=== PATIENT | female | born 1930 | race Caucasian/White ===

== ENCOUNTER 2016-04-15 20:38 | Inpatient (IN) | payer OTHER ==
[~2016-04-15] VITALS: Ht 149.9 cm; Wt 85.8 kg
[2016-04-16] VITALS (9 sets, daily range): BP systolic 118–150; RESP 16–28; TEMP 97.2–99.1; Ht 149.9 cm; Wt 85.8 kg
[2016-04-16] MEDS ORDERED: OSELTAMIVIR 75 MG CAP PO SCH (01:12)
[2016-04-16] MEDS ORDERED: CEFTRIAXONE 1 GM VIAL ONE (01:13)
[2016-04-16] MEDS ORDERED: SODIUM CHLORIDE 0.9% 100 ML IV ONE (01:14)
[2016-04-16] MEDS ORDERED: SOD CHLOR 0.9% 1000 ML IV SCH (01:15)
[2016-04-16] MEDS ORDERED: DUONEB INH ONE (01:53)
[2016-04-16] MEDS ORDERED: OSELTAMIVIR 75 MG CAP PO ONE (01:53)
[2016-04-16] MEDS ORDERED: TOBRAMYCIN IV ONE (03:00)
[2016-04-16] MEDS ORDERED: SODIUM CHLORIDE 0.9% IV ONE (03:00)
[2016-04-16] MEDS ORDERED: DEXTROSE 50% SYRINGE 50 ML IV PRN (03:50)
[2016-04-16] MEDS ORDERED: GLUCAGON 1 MG VIAL IM PRN (03:50)
[2016-04-16] MEDS ORDERED: ONDANSETRON 4 MG VIAL IV PUSH PRN (03:50)
[2016-04-16] MEDS: DUONEB INH SCH ×3 (04:17→11:14)
[2016-04-16] MEDS ORDERED: TRAMADOL 50 MG TAB PO PRN (06:30)
[2016-04-16] MEDS ORDERED: ACETAMINOPHEN 325 MG TAB PO PRN (06:30)
[2016-04-16] MEDS ORDERED: MISSING DOSE XX ONE ×2 (08:00→16:00)
[2016-04-16] MEDS: METHYLPRED SOD SUCC 40 MG VIAL IV SCH ×2 (08:56→20:35)
[2016-04-16] MEDS: OSELTAMIVIR 75 MG CAP PO SCH ×2 (08:57→20:34)
[2016-04-16] MEDS: CEFTRIAXONE 1 GM in SODIUM CHLORIDE 0.9% 50 ML IV SCH (08:57)
[2016-04-16] MEDS: ENOXAPARIN 30 MG/0.3 ML SYR SUBQ SCH ×2 (08:58→20:33)
[2016-04-16] MEDS ORDERED: FLUTICASONE 0.05% NA BTL NARE EACH SCH (09:00)
[2016-04-16] MEDS ORDERED: LISINOPRIL/HCTZ 10/12.5 TAB PO SCH (09:49)
[2016-04-16] MEDS: NEB-BUDESONIDE 0.5 MG INH SCH ×2 (11:14→18:05)
[2016-04-16] MEDS: FLUTICASONE 0.05% NA BTL NARE EACH SCH ×2 (11:44→14:42)
[2016-04-16] MEDS: ASPIRIN EC 81 MG TAB PO SCH (13:37)
[2016-04-16] MEDS ORDERED: DICYCLOMINE 20 MG TAB PO PRN (14:30)
[2016-04-16] MEDS ORDERED: KCL CR 10 MEQ CAP PO ONE (14:30)
[2016-04-16] MEDS ORDERED: Furosemide 20 MG/2 ML VIAL IV ONE (14:30)
[2016-04-16] MEDS: PANTOPRAZOLE 40 MG TAB PO SCH (15:15)
[2016-04-16] MEDS: METOPROLOL XL 25 MG TAB PO SCH (15:16)
[2016-04-16] MEDS: amLODIPine 5 MG TAB PO SCH (15:17)
[2016-04-16] MEDS: LEVOTHYROXINE 0.088 MG TAB PO SCH (15:17)
[2016-04-16] MEDS: DULoxetine 30 MG CAP PO SCH (15:17)
[2016-04-16] MEDS: NEB-XOPENEX 0.63 MG/3 ML INH SCH ×3 (15:42→22:32)
[2016-04-16] MEDS: NEB-ATROVENT INH SCH ×3 (15:42→22:32)
[2016-04-16] MEDS ORDERED: LORAZEPAM 0.5 MG TAB PO PRN (15:50)
[2016-04-16] MEDS: PREGABALIN 25 MG CAP PO SCH ×2 (17:04→20:34)
[2016-04-16] MEDS: BENZONATATE 100 MG CAP PO SCH ×2 (17:05→20:35)
[2016-04-16] MEDS ORDERED: ALPRAZOLAM 0.25 MG TAB PO PRN (17:55)
[2016-04-16] MEDS: CITALOPRAM 20 MG TAB PO SCH (20:33)
[2016-04-16] MEDS: MAG OXIDE 400 MG TAB PO SCH (20:34)
[2016-04-16] MEDS: FAMOTIDINE 20 MG TAB PO SCH (20:34)
[2016-04-16] MEDS: QUEtiapine 25 MG TAB PO SCH (20:34)
[2016-04-16] MEDS: DOCUSATE SOD 100 MG CAP PO SCH (20:34)
[2016-04-16] MEDS: TEMAZEPAM 15 MG CAP PO SCH (20:34)
[2016-04-16] MEDS ORDERED: TIZANIDINE 4 MG TAB PO SCH (21:00)
[2016-04-16] MEDS: LORAZEPAM 0.5 MG TAB PO SCH (21:00)
[2016-04-17] VITALS (9 sets, daily range): BP systolic 118–160; RESP 18–28; TEMP 96.5–98.6
[2016-04-17] MEDS: NEB-ATROVENT INH SCH ×6 (03:16→23:39)
[2016-04-17] MEDS: NEB-XOPENEX 0.63 MG/3 ML INH SCH ×6 (03:16→23:39)
[2016-04-17] MEDS: TOBRAMYCIN IV SCH (05:32)
[2016-04-17] MEDS: SODIUM CHLORIDE 0.9% IV SCH (05:32)
[2016-04-17] MEDS: PANTOPRAZOLE 40 MG TAB PO SCH (06:42)
[2016-04-17] MEDS: LEVOTHYROXINE 0.088 MG TAB PO SCH (06:42)
[2016-04-17] MEDS ORDERED: LEVOTHYROXINE 0.1 MG TAB PO SCH (07:00)
[2016-04-17] MEDS: NEB-BUDESONIDE 0.5 MG INH SCH ×2 (07:49→19:32)
[2016-04-17] MEDS: LORAZEPAM 0.5 MG TAB PO SCH (07:55)
[2016-04-17] MEDS: ASPIRIN EC 81 MG TAB PO SCH (07:55)
[2016-04-17] MEDS: PREGABALIN 25 MG CAP PO SCH ×3 (07:56→21:14)
[2016-04-17] MEDS: OSELTAMIVIR 75 MG CAP PO SCH ×2 (07:56→21:14)
[2016-04-17] MEDS: DULoxetine 30 MG CAP PO SCH (07:56)
[2016-04-17] MEDS: amLODIPine 5 MG TAB PO SCH (07:56)
[2016-04-17] MEDS: METOPROLOL XL 25 MG TAB PO SCH (07:57)
[2016-04-17] MEDS: FAMOTIDINE 20 MG TAB PO SCH (07:57)
[2016-04-17] MEDS: BENZONATATE 100 MG CAP PO SCH ×3 (07:57→21:21)
[2016-04-17] MEDS ORDERED: KCL CR 10 MEQ TAB PO SCH (09:00)
[2016-04-17] MEDS: FLUTICASONE 0.05% NA BTL NARE EACH SCH ×2 (09:00)
[2016-04-17] MEDS ORDERED: Furosemide 40 MG TAB PO SCH (09:00)
[2016-04-17] MEDS: CEFTRIAXONE 1 GM in SODIUM CHLORIDE 0.9% 50 ML IV SCH (09:15)
[2016-04-17] MEDS: ENOXAPARIN 30 MG/0.3 ML SYR SUBQ SCH ×2 (09:16→21:16)
[2016-04-17] MEDS: SODIUM CHLOR 0.9% W/KCL 20MEQ 1,000 ML IV SCH (10:25)
[2016-04-17] MEDS: METHYLPRED SOD SUCC 125 MG/2 ML VIAL IV SCH ×2 (11:46→18:16)
[2016-04-17] MEDS ORDERED: MISSING DOSE XX ONE (19:50)
[2016-04-17] MEDS: TEMAZEPAM 15 MG CAP PO SCH (21:14)
[2016-04-17] MEDS: MAG OXIDE 400 MG TAB PO SCH (21:14)
[2016-04-17] MEDS: DOCUSATE SOD 100 MG CAP PO SCH (21:15)
[2016-04-17] MEDS: QUEtiapine 25 MG TAB PO SCH (21:15)
[2016-04-17] MEDS: CITALOPRAM 20 MG TAB PO SCH (21:15)
[2016-04-18] VITALS (8 sets, daily range): BP systolic 122–146; RESP 19–25; TEMP 96.3–97.3
[2016-04-18] MEDS: METHYLPRED SOD SUCC 125 MG/2 ML VIAL IV SCH ×5 (00:30→23:41)
[2016-04-18] MEDS: SODIUM CHLOR 0.9% W/KCL 20MEQ 1,000 ML IV SCH ×2 (00:30→15:36)
[2016-04-18] MEDS: LORAZEPAM 0.5 MG TAB PO SCH ×3 (00:30→21:16)
[2016-04-18] MEDS: NEB-ATROVENT INH SCH ×6 (03:10→23:15)
[2016-04-18] MEDS: NEB-XOPENEX 0.63 MG/3 ML INH SCH ×6 (03:10→23:15)
[2016-04-18] MEDS: TOBRAMYCIN IV SCH (05:22)
[2016-04-18] MEDS: SODIUM CHLORIDE 0.9% IV SCH (05:22)
[2016-04-18] MEDS: LEVOTHYROXINE 0.088 MG TAB PO SCH (06:30)
[2016-04-18] MEDS: PANTOPRAZOLE 40 MG TAB PO SCH (06:30)
[2016-04-18] MEDS: CEFTRIAXONE 1 GM in SODIUM CHLORIDE 0.9% 50 ML IV SCH (07:51)
[2016-04-18] MEDS: DULoxetine 30 MG CAP PO SCH (07:53)
[2016-04-18] MEDS: ASPIRIN EC 81 MG TAB PO SCH (07:53)
[2016-04-18] MEDS: PREGABALIN 25 MG CAP PO SCH ×3 (07:53→21:15)
[2016-04-18] MEDS: BENZONATATE 100 MG CAP PO SCH (07:54)
[2016-04-18] MEDS: amLODIPine 5 MG TAB PO SCH (07:54)
[2016-04-18] MEDS: OSELTAMIVIR 75 MG CAP PO SCH ×2 (07:54→21:17)
[2016-04-18] MEDS: METOPROLOL XL 25 MG TAB PO SCH (07:55)
[2016-04-18] MEDS: ENOXAPARIN 30 MG/0.3 ML SYR SUBQ SCH ×2 (07:55→21:19)
[2016-04-18] MEDS: NEB-BUDESONIDE 0.5 MG INH SCH ×2 (07:58→19:41)
[2016-04-18] MEDS: FLUTICASONE 0.05% NA BTL NARE EACH SCH (09:00)
[2016-04-18] MEDS: LEVOFLOXACIN 500 MG TAB PO SCH (11:18)
[2016-04-18] MEDS: DOCUSATE SOD 100 MG CAP PO SCH (21:15)
[2016-04-18] MEDS: MAG OXIDE 400 MG TAB PO SCH (21:15)
[2016-04-18] MEDS: TEMAZEPAM 15 MG CAP PO SCH (21:16)
[2016-04-18] MEDS: QUEtiapine 25 MG TAB PO SCH (21:17)
[2016-04-18] MEDS ORDERED: BENZONATATE 100 MG CAP PO PRN (22:05)
[2016-04-19] VITALS: RESP 24
[2016-04-19] MEDS: LEVOTHYROXINE 0.088 MG TAB PO SCH (06:17)
[2016-04-19] MEDS: PANTOPRAZOLE 40 MG TAB PO SCH (06:17)
[2016-04-19] MEDS: METHYLPRED SOD SUCC 125 MG/2 ML VIAL IV SCH ×2 (06:19→11:24)
[2016-04-19] MEDS: NEB-XOPENEX 0.63 MG/3 ML INH SCH ×2 (07:34→11:57)
[2016-04-19] MEDS: NEB-BUDESONIDE 0.5 MG INH SCH (07:34)
[2016-04-19] MEDS: NEB-ATROVENT INH SCH ×2 (07:35→11:57)
[2016-04-19 07:50] VITALS: BP_SYST 160; RESP 22; TEMP 97.6
[2016-04-19] MEDS: ENOXAPARIN 30 MG/0.3 ML SYR SUBQ SCH (08:40)
[2016-04-19] MEDS: amLODIPine 5 MG TAB PO SCH (08:41)
[2016-04-19] MEDS: OSELTAMIVIR 75 MG CAP PO SCH (08:41)
[2016-04-19] MEDS: FLUTICASONE 0.05% NA BTL NARE EACH SCH (08:41)
[2016-04-19] MEDS: METOPROLOL XL 25 MG TAB PO SCH (08:41)
[2016-04-19] MEDS: PREGABALIN 25 MG CAP PO SCH (08:41)
[2016-04-19] MEDS: LORAZEPAM 0.5 MG TAB PO SCH (08:42)
[2016-04-19] MEDS: DULoxetine 30 MG CAP PO SCH (08:42)
[2016-04-19] MEDS: ASPIRIN EC 81 MG TAB PO SCH (08:42)
[2016-04-19] MEDS: LEVOFLOXACIN 500 MG TAB PO SCH (08:42)
[2016-04-19 10:46] VITALS: BP_SYST 150; BP_SYST 160; RESP 20; RESP 22; TEMP 97.6
== END 2016-04-19 12:21 | disposition home or self-care (01) | DRG 189 ==
LOC: ENRESERVDT → ENRESERVTM → ENRESERV → ER 20:38 → EMR 20:39 → 3NT 04-16 02:39 → ENPENDDIS 04-16 14:30 → OBSVTOIN 04-16 14:30
PROVIDERS: ADMIT Internal Medicine; ATTEND Internal Medicine
DX: J96.01 Acute respiratory failure with hypoxia (principal); J44.0 Chronic obstructive pulmonary disease with (acute) lower respiratory infection; J44.1 Chronic obstructive pulmonary disease with (acute) exacerbation; N39.0 Urinary tract infection, site not specified; J11.1 Influenza due to unidentified influenza virus with other respiratory manifestations; Z87.891 Personal history of nicotine dependence; F32.9 Major depressive disorder, single episode, unspecified; F41.9 Anxiety disorder, unspecified; M79.7 Fibromyalgia; E03.9 Hypothyroidism, unspecified; I10 Essential (primary) hypertension; M19.90 Unspecified osteoarthritis, unspecified site; G89.29 Other chronic pain; J20.9 Acute bronchitis, unspecified; B95.2 Enterococcus as the cause of diseases classified elsewhere; M47.9 Spondylosis, unspecified; Z79.82 Long term (current) use of aspirin
CPT/HCPCS: 36415; 36600; 71010; 71020; 80048; 80053; 80200; 81001; 82553; 82803; 82947; 83605; 83735; 83880; 84439; 84443; 84484; 85025; 87040; 87077; 87088; 87186; 87804; 93005; 94640; 94660; 94799; 96374